=== PATIENT | female | born 1990 | race Caucasian/White ===

== ENCOUNTER 2020-07-20 09:18 | Emergency (ER) | payer OTHER, SELFPAY ==
[2020-07-20 09:34] VITALS: BP 119/62; PULSE 81; RESP 16; TEMP 36.6; O2SAT 100; BMI 35.5
--- NOTE | 2020-07-20 09:39 | ED_ITS ---
HPI - Headache General Chief Complaint: Headache Stated Complaint: headache Time Seen by Provider: 07/20/20 09:21 Source: patient Mode of arrival: ambulatory Limitations: no limitations History of Present Illness HPI Narrative: has a lot of stress at work but also notes her neck muscles are tight as well MD elicited complaint: headache Onset (ago): week(s) (1) Onset description: gradually Location: right, left, occipital and generalized Severity: moderate Quality & Timing: aching and throbbing Exacerbating factors: none Relieving factors: nothing Context: occurred at rest Associated symptoms: none Treatments prior to arrival: none Related Data Previous Rx's Medication Instructions Recorded [id number]-dhhtejzfnyryp-lzga 1 tab PO Q6H PRN #20 tab 07/20/20 cyclobenzaprine 10 mg PO TID PRN #14 tab 07/20/20 ibuprofen 600 mg PO Q6H PRN #30 tab 07/20/20 ondansetron 4 mg PO Q8H PRN #20 tab 07/20/20 Allergies Allergy/AdvReac Type Severity Reaction Status Date / Time No Known Allergies Allergy Verified 07/20/20 09:34 Review of Systems Review of Systems: Constitutional : No Fever, No Chills, No Fatigue ENT/Mouth : No sore throat, No Rhinorrhea, noted scant blood in nose this week while blowing Eyes: No Eye Pain, No Swelling, No Redness Cardiovascular : No Chest Pain, No SOB, No Dyspnea on Exertion Respiratory : No Cough, No Sputum Gastrointestinal : No Nausea, No Vomiting, No Diarrhea, No abdominal Pain Genitourinary : No Dysuria, No Urinary Frequency, No Hematuria, Musculoskeletal : No joint pain, No Myalgias, No Joint Swelling Skin : No Skin Lesions, No rash Neuro : No Weakness, No Numbness, No Dizziness, positive Headache Psych : No Anxiety/Panic, No Depression Heme/Lymph: No Bruising, No Bleeding,No Lymphadenopathy Endocrine : No Polyuria, No Polydipsia All other systems reviewed and are negative [facility] Past Medical History Attestation statement: The following information was validated with the patient. Medical History No active medical problems Social History Social History (Updated 07/20/20 @ 09:56 by Lara Crain DO) Alcohol intake: never Smoking Status: Never smoker Use of substances other than those prescribed or required for medical reasons: No Advance Directives: No Advance Directives Information Provided: No Physical Exam Vital Signs: Vital Signs: Last Vital Signs Temp 98 F 07/20/20 09:34 Pulse 68 07/20/20 11:21 Resp 16 07/20/20 11:21 BP 92/41 L 07/20/20 11:21 Pulse Ox 98 07/20/20 11:21 Body Mass Index 35.5 Appearance: Alert. Oriented X3. No acute distress. Eyes: Pupils equal, round and reactive to light. ENT: Pharynx normal. dried cracked area in nose bilaterally no active bleeding Neck: Normal inspection. bilateral trapezius spasm and ttp CVS: Normal heart rate and rhythm. Pulses normal. Respiratory: No respiratory distress. Breath sounds normal. Abdomen: Soft and non-tender. Skin: Skin warm and dry. Normal skin color. Normal skin turgor. Extremities: No lower extremity edema. No calf ttp Neuro: Oriented X 3. No motor deficit. No sensory deficit. Course Course Course Narrative: negative head CT negative UPT at this time stable for DC MDM - Headache MDM Narrative Medical decision making narrative: 30 yo female no AC therapy here with headaches x 1 week and neck pain from tight muscles at this time will obtain UPT, CT head for mass, treat headache - 1 week waxing and waning neuro intact gradual onset doubt SAH, no fevers or meningeal signs to suggest CLINICAL STAFF RN infection Lab Data Labs: Lab Results 07/20/20 Range/Units 10:08 Urine Test NEGATIVE (NEGATIVE) Discharge Plan Discharge Clinical Impression: Tension headache Patient Disposition: Home, Self-Care Instructions: Tension Headache (ED) Additional Instructions: return to ED for any worsening symptoms or concerns Prescriptions: New cyclobenzaprine 10 mg tablet 10 mg PO TID PRN (Reason: muscle spasm) Qty: 14 RF: 0 qwphipjzjd-jaexyoeyazvkl-bivq 50-325-40 mg tablet 1 tab PO Q6H PRN (Reason: pain) Qty: 20 RF: 0 ibuprofen 600 mg tablet 600 mg PO Q6H PRN (Reason: pain) Qty: 30 RF: 0 ondansetron 4 mg tablet,disintegrating 4 mg PO Q8H PRN (Reason: nausea and vomiting) Qty: 20 RF: 0 Referrals: Physician,None [Primary Care Provider] - 2 days (if not better) Stand Alone Forms: Work/School Release
--- NOTE | 2020-07-20 09:45 | CT_ITS ---
EXAMINATION: CT HEAD WITHOUT CONTRAST CLINICAL INFORMATION: Headache. COMPARISON: None TECHNIQUE: Contiguous axial imaging was performed from the skull base to vertex without intravenous administration of contrast. This CT examination was performed using dose optimization techniques as appropriate, variously including the following: *Automated exposure control *Adjustment of mA and/or kV according to patient size (this includes techniques or standardized protocols for targeted exams where dose is matched to indication/reason for exam; i.e. extremities or head) *Use of iterative reconstruction technique DLP: 575 mGy-cm FINDINGS: There is no evidence of acute intracranial hemorrhage or territorial infarction. No abnormal mass effect or midline shift is seen. Trejo to white matter differentiation is well preserved. No extra-axial fluid collections are identified. The ventricles are normal in size. There is no abnormal attenuation within the brain parenchyma. The osseous structures and soft tissues are normal. The mastoid air cells and visualized portions of the paranasal sinuses are well aerated. CT/CT head/brain wo con IMPRESSION: No acute intracranial process seen.
[2020-07-20] MEDS: Cyclobenzaprine HCl 10 MG TABLET PO (10:04)
[2020-07-20] MEDS: Ibuprofen 600 MG TABLET PO (10:05)
[2020-07-20 10:17] LABS: UPreg QC Valid YES; Urine Pregnancy NEGATIVE (NEGATIVE)
[2020-07-20 11:21] VITALS: BP 92/41; PULSE 68; RESP 16; O2SAT 98
--- NOTE | 2020-07-20 11:30 | PC.NURSE ---
1130 - Provider aware of BP trends
[2020-07-20] MEDS: Butalb/Acetamin/Caff 50/325/40 TABLET 1 TAB PO (12:12)
[2020-07-20 12:22] VITALS: BP 103/60; PULSE 69; RESP 16
== END 2020-07-20 12:23 | disposition home or self-care (01) ==
PROVIDERS: Emergency Provider Emergency Medicine
DX: G44.209 Tension-type headache, unspecified, not intractable (principal)
CPT/HCPCS: 70450; 81025; 99284

== ENCOUNTER 2022-05-24 11:52 | Emergency (ER) | payer MEDICAID, SELFPAY ==
--- NOTE | ~2022-05-24 | XR_ITS ---
EXAMINATION: XR CHEST CLINICAL INFORMATION: Cough, fever. COMPARISON: None TECHNIQUE: 2 views of the chest were obtained. FINDINGS: No significant abnormality is noted involving the heart, lungs, mediastinum, bony thorax or soft tissues. XR/XR chest 2V IMPRESSION: No acute cardiopulmonary process.
[2022-05-24 12:16] VITALS: BP 104/56; PULSE 99; RESP 18; TEMP 36.7; O2SAT 98; BMI 39.6
[2022-05-24 13:20] LABS: Influenza A PCR NEGATIVE (Negative); Influenza B PCR NEGATIVE (Negative); Resp Syncy Virus RNA Qual PCR NEGATIVE (Negative); SARS COV2 PCR INHOUSE NEGATIVE (Negative)
--- NOTE | 2022-05-24 16:14 | ED_ITS ---
HPI - URI/Sore Throat General Chief Complaint: Upper Respiratory Symptoms Stated Complaint: Cough Fever Time Seen by Provider: 05/24/22 16:06 Source: patient Mode of arrival: ambulatory Limitations: no limitations History of Present Illness HPI Narrative: Patient is a 32-year-old female who presents to the emergency department for evaluation of cough and fever. She reports onset to be 2 weeks ago she was taking DayQuil and NyQuil her symptoms are significantly improving, and then 4 days ago her cough worsened again and she developed fevers again. She states that the DayQuil and NyQuil is not helping with her symptoms this time. Denies body aches, fatigue, recent unintentional weight loss, night sweats, nasal congestion, sore throat, neck pain, neck stiffness, chest pain, palpitations, shortness of breath, difficulty breathing, nausea vomiting, abdominal pain, dysuria, urinary frequency/urgency/hesitancy. Related Data Previous Rx's Medication Instructions Recorded ntcxkewoha-rlzjsnpspugqt-fqhcmzvz 1 tab PO Q6H PRN pain #20 tabs 07/20/20 50 mg-325 mg-40 mg tablet cyclobenzaprine 10 mg tablet 10 mg PO TID PRN muscle spasm #14 07/20/20 tabs ibuprofen 600 mg tablet 600 mg PO Q6H PRN pain #30 tabs 07/20/20 ondansetron 4 mg disintegrating 4 mg PO Q8H PRN nausea and 07/20/20 tablet vomiting #20 tabs albuterol sulfate 90 mcg/actuation 2 puff inhalation Q4-6H PRN 05/24/22 aerosol inhaler shortness of breath or wheezing #6.7 grams azithromycin 250 mg tablet See Rx Instructions PO .COMPLEX #6 05/24/22 tabs codeine 10 mg-guaifenesin 100 mg/5 10 ml PO Q4-6H PRN cough #118 mL 05/24/22 mL oral liquid Allergies Allergy/AdvReac Type Severity Reaction Status Date / Time No Known Allergies Allergy Verified 07/20/20 09:34 Review of Systems Review of Systems: Constitutional: Positive fever. No chills. No weakness. Positive fatigue. ENT/ Mouth: No Ear Pain, no Nasal Congestion, no sore throat, No Rhinorrhea, No Swallowing Difficulty Skin: No rash or itching. Cardiovascular: No chest pain. No palpitations. Respiratory: No shortness of breath. Positive cough. No sputum production. Gastrointestinal: No nausea. No vomiting. No diarrhea. No abdominal pain. Genitourinary: No burning micturition. No urinary frequency. Neurologic: No headache. No dizziness. No syncope. No numbness or tingling in the extremities. Musculoskeletal: No muscle pain. No back pain. No joint pain or stiffness. Yes all other systems are reviewed and are negative PMFSH Past Medical History Attestation statement: The following information was validated with the patient. Source: old records reviewed Medical History No active medical problems Social History Social History Alcohol intake: never Advance Directives: No Advance Directives Information Provided: No Physical Exam Vital Signs: Vital Signs: Last Vital Signs Temp 98.0 F 05/24/22 12:16 Pulse 99 05/24/22 12:16 Resp 18 05/24/22 12:16 BP 104/56 L 05/24/22 12:16 Pulse Ox 98 05/24/22 12:16 O2 Del Method 05/24/22 12:16 BMI result Body Mass Index 39.6 Vital signs have been reviewed as normal and appeared to be correct. Blood pressure normal.? Heart rate normal.? Respiration rate normal. Temperature normal.? Oxygen saturation normal. Appearance: Alert.?Oriented to person, place and time. No acute distress.?Normal affect. Eyes: Pupils equal, round and reactive to light.? ENT: TM normal bilaterally. Pharynx normal.?? Neck: Normal inspection.? Neck supple.??No cervical adenopathy CVS: Heart sounds normal. Normal heart rate and rhythm.? Pulses normal.?? Respiratory: No respiratory distress.? Lung sounds clear to auscultation bilaterally?? Abdomen: Soft and non-tender. Normoactive bowel sounds. Skin: Skin warm and dry.? Normal skin color.? ? Extremities: No lower extremity edema.? Neuro: Moves all extremities spontaneously. Sensation intact bilaterally. No motor deficits. Ambulates with normal steady gait. Course Course Course Narrative: Patient is a 32-year-old female with no significant past medical history, presenting for evaluation of upper respiratory symptoms. COVID-19 testing negative. Influenza testing negative. Chest x-ray reveals no acute cardiopulmonary findings. PERC negative. At this time history and physical exam not consistent with ACS/PE/pneumonia. Well-appearing, nontoxic, afebrile, no tachycardia or tachypnea/hypoxia. Speaking clear full sentences, ambulatory with steady gait. Symptoms most consistent with bronchitis verses community- acquired pneumonia not noted on chest x-ray. Discussed plan of care for discharge home, new prescription for albuterol inhaler to use as needed for cough/shortness of breath, as well as new prescription for azithromycin, and guaifenesin with codeine as needed for cough. Discussed conservative treatment including rest, hydration, Tylenol/ibuprofen as needed for fever and body aches, saline nasal spray, humidifier, pusx-sbz-vmcpuan cold medication. Advised to follow-up with primary care provider as needed, discussed reasons to return back to the emergency department. All questions were answered. Patient discharged home in stable condition. MDM - URI/Sore Throat Medical Records Attestation: I reviewed the patient's medical records. Lab Data Attestation: I reviewed the patient's lab results. Labs: Lab Results 05/24/22 Range/Units 12:19 Influenza Type A (PCR) NEGATIVE (Negative) Influenza Type B (PCR) NEGATIVE (Negative) RSV RNA Qual (PCR) NEGATIVE (Negative) SARS-CoV-2 RNA (RT-PCR) NEGATIVE (Negative) Imaging Data Chest x-ray: Radiologist's impression: XR/XR chest 2V IMPRESSION: No acute cardiopulmonary process. Discharge Plan Discharge Clinical Impression: Bronchitis Patient Disposition: Home, Self-Care Instructions: Acute Bronchitis (ED) Additional Instructions: New prescriptions were sent to your pharmacy for an albuterol inhaler to use every 4-6 hours as needed for shortness of breath cough. Additionally sent prescription for azithromycin, please complete this entire course of antibiotic. Cough syrup with codeine to be used as needed every 4-6 hours for cough. Be sure to rest, stay well hydrated drinking plenty of fluids, eat small frequent meals. Tylenol/ibuprofen can be used as needed for fever/pain. Innk-cir-yxoxkxq cold medications may be helpful as well for symptoms. You may return to the emergency department with any new or worsening symptoms or concerns. Follow-up with your primary care provider as needed. Prescriptions: New azithromycin 250 mg tablet See Rx Instructions .ROUTE .COMPLEX Qty: 6 0RF Rx Instructions: For 250 mg dose pack: take 500 mg today (day 1), then 250 mg for 4 days (days 2-5) albuterol sulfate 90 mcg/actuation HFA aerosol inhaler 2 puff inhalation Q4-6H PRN (Reason: shortness of breath or wheezing) Qty: 6.7 0RF codeine-guaifenesin 10-100 mg/5 mL liquid 10 ml PO Q4-6H PRN (Reason: cough) Qty: 118 0RF No Action cyclobenzaprine 10 mg tablet 10 mg PO TID PRN (Reason: muscle spasm) Qty: 14 0RF ijsmbzzsgc-rfjumfgbyarmx-allr 50-325-40 mg tablet 1 tab PO Q6H PRN (Reason: pain) Qty: 20 0RF ibuprofen 600 mg tablet 600 mg PO Q6H PRN (Reason: pain) Qty: 30 0RF ondansetron 4 mg tablet,disintegrating 4 mg PO Q8H PRN (Reason: nausea and vomiting) Qty: 20 0RF Referrals: Physician,None [Primary Care Provider] - Interventions: ED Discharge Assessment Last Done: 05/24/22 18:00 Discharge Date/Time: 05/24/22 18:00
== END 2022-05-24 18:00 | disposition home or self-care (01) ==
PROVIDERS: Emergency Provider Emergency Medicine
DX: J40 Bronchitis, not specified as acute or chronic (principal); R05.9 Cough, unspecified; R50.9 Fever, unspecified; Z20.822 Contact with and (suspected) exposure to COVID-19; Z79.899 Other long term (current) drug therapy
CPT/HCPCS: 0241U; 71046; 99282; 99283

== ENCOUNTER 2022-11-20 13:07 | Emergency (ER) | payer MEDICAID, SELFPAY ==
--- NOTE | 2022-11-20 13:34 | ED.GENADULT ---
HPI - General Adult General Chief complaint: Allergic Reaction <Ralph Yates - Last Filed: 11/20/22 13:35> Stated complaint: Allergic reaction-rash across body <Ralph Yates - Last Filed: 11/20/22 13:35> Time Seen by Provider: 11/20/22 14:15 <Ralph Yates - Last Filed: 11/20/22 13:35> History of Present Illness HPI narrative: Patient complains of hives all over her body for the past 2 days without a known cause, she has no swelling in her throat no difficulty breathing or swallowing no wheezing no shortness of breath no fainting no feeling faint, she is not sure what caused the high, no vomiting no nausea She has been taking Benadryl every 50 mg every 6 hours without relief <ILIA Jarrell - Last Filed: 11/20/22 19:30> Related Data Home medications: Previous Rx's Medication Instructions Recorded lhuxluepft-zpkkmrzlaxlek-bohuhyou 1 tab PO Q6H PRN pain #20 tabs 07/20/20 50 mg-325 mg-40 mg tablet cyclobenzaprine 10 mg tablet 10 mg PO TID PRN muscle spasm #14 07/20/20 tabs ibuprofen 600 mg tablet 600 mg PO Q6H PRN pain #30 tabs 07/20/20 ondansetron 4 mg disintegrating 4 mg PO Q8H PRN nausea and 07/20/20 tablet vomiting #20 tabs albuterol sulfate 90 mcg/actuation 2 puff inhalation Q4-6H PRN 05/24/22 aerosol inhaler shortness of breath or wheezing #6.7 grams azithromycin 250 mg tablet See Rx Instructions PO .COMPLEX #6 05/24/22 tabs codeine 10 mg-guaifenesin 100 mg/5 10 ml PO Q4-6H PRN cough #118 mL 05/24/22 mL oral liquid cetirizine 10 mg tablet 10 mg PO DAILY PRN allergy 11/20/22 symptoms #30 tabs famotidine 20 mg tablet (Pepcid) 20 mg PO DAILY #7 tabs 11/20/22 prednisone 20 mg tablet 60 mg PO DAILY 3 days #9 tabs 11/20/22 <Ralph Yates - Last Filed: 11/20/22 13:35> Allergies/adverse reactions: Allergies Allergy/AdvReac Type Severity Reaction Status Date / Time No Known Allergies Allergy Verified 07/20/20 09:34 <Ralph Yates - Last Filed: 11/20/22 13:35> FOR[facility]LY [facility], [facility] Past Medical History Source: nursing notes reviewed <ILIA Jarrell - Last Filed: 11/20/22 19:30> Medical History: Medical History No active medical problems <Ralph Yates - Last Filed: 11/20/22 13:35> Social History Social History: Social History Alcohol intake: never Advance Directives: No Advance Directives Information Provided: No <Ralph Yates - Last Filed: 11/20/22 13:35> Physical Exam ED Vital Signs: Vital Signs - 24 hr 11/20/22 13:37 11/20/22 14:47 11/20/22 15:41 Temperature 98 F 98.3 F Pulse Rate 97 88 83 Respiratory Rate 19 15 Blood Pressure 105/65 106/63 92/62 Pulse Oximetry 100 100 Oxygen Delivery Method Room Air Room Air BMI result Body Mass Index 38.6 <Ralph Yates - Last Filed: 11/20/22 13:35> Vital Signs - 24 hr 11/20/22 13:37 11/20/22 14:47 11/20/22 15:41 Temperature 98 F 98.3 F Pulse Rate 97 88 83 Respiratory Rate 19 15 Blood Pressure 105/65 106/63 92/62 Pulse Oximetry 100 100 Oxygen Delivery Method Room Air Room Air BMI result Body Mass Index 38.6 <ILIA Jarrell - Last Filed: 11/20/22 19:30> General appearance no distress speaking full sentences no respiratory distress Eyes no redness no discharge The sinuses nontender The pharynx is clear without swelling of lips tongue uvula or pharynx, voice is normal, no impairment of breathing or swallowing Neck is supple No stridor The chest is clear to auscultation with full symmetric equal breath sounds Heart no murmur Abdomen soft nontender Extremities full range of motion x4 Skin there is diffuse urticaria over face scalp neck chest and all extremities <ILIA Jarrell - Last Filed: 11/20/22 19:30> Course Course Course Narrative: 32 year old female presents for an allergic reaction that started 2 days ago. Known allergy to seafood, but she did not knowingly eat any seafood. Has been using Benadryl every 4 hours with minimal improvement. <Ralph Yates - Last Filed: 11/20/22 13:35> 32 year old female presents for an allergic reaction that started 2 days ago. Known allergy to seafood, but she did not knowingly eat any seafood. Has been using Benadryl every 4 hours with minimal improvement. Patient with itchy hives all over her body for past 2 days was been taking Benadryl multiple times a day for the last 48 hours without improvement As it is all over her body and very itchy we tried IM epi 3 mg which did help quite a bit with the rash but she still feels very itchy, the rash has visibly decreased Repeat exam there is a clear chest no respiratory distress no wheezing, repeat exam of the pharynx was normal Well-appearing patient with hives without any other dangerous allergic reaction is discharged <ILIA Jarrell - Last Filed: 11/20/22 19:30> Medications Administered Discontinued Medications Generic Name Dose Route Start Last Admin Trade Name Freq PRN Reason Stop Dose Admin Epinephrine 0.3 mg 11/20/22 14:32 11/20/22 14:47 Epinephrine 1 Mg/Ml Vial IM 11/20/22 14:33 0.3 mg STAT STA Administration Loratadine 10 mg 11/20/22 14:32 11/20/22 14:46 Loratadine 10 Mg Tablet PO 11/20/22 14:33 10 mg ONCE ONE Administration Prednisone 60 mg 11/20/22 14:32 11/20/22 14:46 Prednisone 20 Mg Tablet PO 11/20/22 14:33 60 mg ONCE ONE Administration <Ralph Yates - Last Filed: 11/20/22 13:35> Medications Administered Discontinued Medications Generic Name Dose Route Start Last Admin Trade Name Freq PRN Reason Stop Dose Admin Epinephrine 0.3 mg 11/20/22 14:32 11/20/22 14:47 Epinephrine 1 Mg/Ml Vial IM 11/20/22 14:33 0.3 mg STAT STA Administration Loratadine 10 mg 11/20/22 14:32 11/20/22 14:46 Loratadine 10 Mg Tablet PO 11/20/22 14:33 10 mg ONCE ONE Administration Prednisone 60 mg 11/20/22 14:32 11/20/22 14:46 Prednisone 20 Mg Tablet PO 11/20/22 14:33 60 mg ONCE ONE Administration <ILIA Jarrell - Last Filed: 11/20/22 19:30> Discharge Plan Discharge Clinical Impression: Hives <Ralph Yates - Last Filed: 11/20/22 13:35> Patient Disposition: Home, Self-Care <Ralph Yates - Last Filed: 11/20/22 13:35> Additional Instructions: For hives all over her body we gave 1 dose of epinephrine which did reduce the visible rash but so far has not help much with itching We will increase the dose of antihistamine we gave a dose of Claritin here which lasts for 24 hours if you are still itching with rash tonight it is very safe to take another dose of cetirizine antihistamine 10 mg If needed you can use 10 mg of cetirizine twice a day for the next few days I wrote for 3 more days of prednisone If not better in 1-2 days follow with primary doctor Return any time for difficulty breathing, throat swelling any worse condition or any concerns <Ralph Yates - Last Filed: 11/20/22 13:35> Prescriptions: New cetirizine 10 mg tablet 10 mg PO DAILY PRN (Reason: allergy symptoms) Qty: 30 0RF famotidine [Pepcid] 20 mg tablet 20 mg PO DAILY Qty: 7 0RF prednisone 20 mg tablet 60 mg PO DAILY 3 Days Qty: 9 0RF No Action cyclobenzaprine 10 mg tablet 10 mg PO TID PRN (Reason: muscle spasm) Qty: 14 0RF dxtlpihxeu-ubfxcsgauvfvj-jlli 50-325-40 mg tablet 1 tab PO Q6H PRN (Reason: pain) Qty: 20 0RF ibuprofen 600 mg tablet 600 mg PO Q6H PRN (Reason: pain) Qty: 30 0RF ondansetron 4 mg tablet,disintegrating 4 mg PO Q8H PRN (Reason: nausea and vomiting) Qty: 20 0RF azithromycin 250 mg tablet See Rx Instructions .ROUTE .COMPLEX Qty: 6 0RF Rx Instructions: For 250 mg dose pack: take 500 mg today (day 1), then 250 mg for 4 days (days 2-5) albuterol sulfate 90 mcg/actuation HFA aerosol inhaler 2 puff inhalation Q4-6H PRN (Reason: shortness of breath or wheezing) Qty: 6.7 0RF codeine-guaifenesin 10-100 mg/5 mL liquid 10 ml PO Q4-6H PRN (Reason: cough) Qty: 118 0RF <Ralph Yates - Last Filed: 11/20/22 13:35> Interventions: ED Discharge Assessment Last Done: 11/20/22 15:42 <Ralph Yates - Last Filed: 11/20/22 13:35> Discharge Date/Time: 11/20/22 15:44 <Ralph Yates - Last Filed: 11/20/22 13:35>
[2022-11-20 13:37] VITALS: BP 105/65; PULSE 97; RESP 19; TEMP 36.6; O2SAT 100; BMI 38.6
[2022-11-20] MEDS: predniSONE 20 MG TABLET 60 MG PO (14:46)
[2022-11-20] MEDS: Loratadine 10 MG TABLET PO (14:46)
[2022-11-20 14:47] VITALS: BP 106/63; PULSE 88
[2022-11-20] MEDS: EPINEPHrine 1 MG/ML VIAL 0.3 MG IM (14:47)
--- NOTE | 2022-11-20 14:54 | PC.NURSE ---
pt medicated per SEP, pt given 0.3mg epi IM for full body hives, pt changed into hospital attire, pt placed on equipment monitor phototypesetting. pt speaking in full sentances no increased work of breathing. call tyson within reach [facility]
[2022-11-20 15:41] VITALS: BP 92/62; PULSE 83; RESP 15; TEMP 36.8; O2SAT 100
== END 2022-11-20 15:44 | disposition home or self-care (01) ==
PROVIDERS: Emergency Provider Emergency Medicine Emergency Medical Services
DX: L50.0 Allergic urticaria (principal); Z79.899 Other long term (current) drug therapy
CPT/HCPCS: 96372; 99283; 99284; J0171

== ENCOUNTER 2023-06-26 22:51 | Emergency (ER) | payer OTHER, SELFPAY ==
[2023-06-26 22:58] VITALS: BP 100/51; PULSE 81; RESP 16; TEMP 36.2; O2SAT 99; BMI 37.6
--- NOTE | 2023-06-27 00:38 | ED_ITS ---
HPI - Skin/Abscess/Foreign Bdy General Chief complaint: Skin/Abscess/Foreign Body Stated complaint: body rash Time Seen by Provider: 06/27/23 00:23 Source: patient Mode of arrival: ambulatory Limitations: no limitations History of Present Illness HPI narrative: 33-year-old female otherwise healthy came in for evaluation of diffuse hives started 2 weeks ago. Start as small dot on the skin then turn into hive that is itchy mostly on bilateral extremities and lower back and abdominal area and bilateral thighs. Patient declined any change in the daily routine no new medication or new drugs, no new detergent, no new food. Related Data Previous Rx's Medication Instructions Recorded malzebyvhd-ytsplycopvbyl-ehtrjhoq 1 tab PO Q6H PRN pain #20 tabs 07/20/20 50 mg-325 mg-40 mg tablet cyclobenzaprine 10 mg tablet 10 mg PO TID PRN muscle spasm #14 07/20/20 tabs ibuprofen 600 mg tablet 600 mg PO Q6H PRN pain #30 tabs 07/20/20 ondansetron 4 mg disintegrating 4 mg PO Q8H PRN nausea and 07/20/20 tablet vomiting #20 tabs albuterol sulfate 90 mcg/actuation 2 puff inhalation Q4-6H PRN 05/24/22 aerosol inhaler shortness of breath or wheezing #6.7 grams azithromycin 250 mg tablet See Rx Instructions PO .COMPLEX #6 05/24/22 tabs codeine 10 mg-guaifenesin 100 mg/5 10 ml PO Q4-6H PRN cough #118 mL 05/24/22 mL oral liquid cetirizine 10 mg tablet 10 mg PO DAILY PRN allergy 11/20/22 symptoms #30 tabs famotidine 20 mg tablet (Pepcid) 20 mg PO DAILY #7 tabs 11/20/22 prednisone 20 mg tablet 60 mg (3 x 20 mg) PO DAILY 3 days 11/20/22 #9 tabs prednisone 20 mg tablet 20 mg PO BID #8 tabs 06/27/23 Allergies Allergy/AdvReac Type Severity Reaction Status Date / Time No Known Allergies Allergy Verified 07/20/20 09:34 Review of Systems Review of Systems: All other systems are reviewed and are negative Constitutional: Reports as per HPI and Reports no additional constitutional complaints Eyes: Reports as per HPI and Reports no additional eye complaints Reports system reviewed and no additional complaints, except as documented Cardiovascular: Reports as per HPI and Reports no additional cardiovascular complaints Respiratory: Reports as per HPI and Reports no additional respiratory complaints Gastrointestinal: Reports as per HPI and Reports no additional gastrointestinal complaints Genitourinary: Reports no additional female genitourinary complaints Musculoskeletal: Reports no additional musculoskeletal complaints Skin/Breast: Reports system reviewed and no additional complaints, except as docu Psychiatric: Reports no additional psychiatric complaints Endocrine: Reports no additional endocrine complaints Hematologic/Lymphatic: Reports no additional hematologic/lymphatic complaints Allergic/Immunologic: Reports no additional allergic/immunologic complaints Reports system reviewed and no additional complaints, except as documented and Reports Abnormal speech present [facility] Past Medical History Medical History No active medical problems Social History Alcohol intake: never Physical Exam Vital Signs: Vital Signs: Last Vital Signs Temp 97.2 F 06/26/23 22:58 Pulse 81 06/26/23 22:58 Resp 16 06/26/23 22:58 BP 100/51 L 06/26/23 22:58 Pulse Ox 99 06/26/23 22:58 O2 Del Method Room Air 06/26/23 22:58 BMI result Body Mass Index 37.6 Vital signs have been reviewed and appear to be correct. Blood pressure elevated. Heart rate normal. Respiratory rate normal. Temperature normal. Oxygen saturation normal. Appearance: Alert. Oriented X3. No acute distress. Head: Normal external exam. Normocephalic. Atraumatic. No Sales signs noted. No raccoon eyes noted Eyes: PERRLA. EOMI. Conjunctiva and sclera normal. Eyelids normal. ENT: TM's Normal. Pharynx normal. Uvula midline. Moist mucous membranes. No trismus noted. No drooling noted. No muffled voice noted. Neck: Normal inspection. Neck supple. FROM. No adenopathy. Thyroid Normal. No meningeal signs. No neck mass noted. CVS: Normal heart rate and rhythm. Heart sound normal. No murmurs noted. Pulses normal throughout. Respiratory: No respiratory distress. Painless inspiration. Breath sounds normal. No wheezes/rales/rhonchi noted. Chest nontender. No accessory muscle usage noted or decreased air movement noted. Abdomen: Soft and nontender. Bowel sounds normal in all 4 quadrants. No distention noted. No organomegaly noted. No visible injury noted. Back: No CVA tenderness. Full range of motion noted. Skin: Diffuse hives on 4 extremities lower abdomen lower back area. Extremities: No lower extremity edema. Extremities exhibit normal range of motion. Extremities nontender. Neuro: Oriented X 3. Cranial nerve exam: II-XII are grossly intact No motor deficit. No sensory deficit. Reflexes normal. Course Reevaluation(s) Reevaluation #1: Hives of unclear etiology patient declined any change in her daily routine, will start on short course of prednisone. Time: 00:41 Medical Decision Making Differential Diagnosis Differential Diagnoses: The differential diagnosis associated with the presentation includes (Hives, allergic reaction.) Discharge Plan Discharge Clinical Impression: Hives Patient Disposition: Home, Self-Care Instructions: Acute Rash (ED) Additional Instructions: Follow-up with [facility] and ask for referral to a dermatology Prescriptions: New prednisone 20 mg tablet 20 mg PO BID Qty: 8 0RF No Action cyclobenzaprine 10 mg tablet 10 mg PO TID PRN (Reason: muscle spasm) Qty: 14 0RF wymfspcdsc-ddnxbaofjrzca-bqey 50-325-40 mg tablet 1 tab PO Q6H PRN (Reason: pain) Qty: 20 0RF ibuprofen 600 mg tablet 600 mg PO Q6H PRN (Reason: pain) Qty: 30 0RF ondansetron 4 mg tablet,disintegrating 4 mg PO Q8H PRN (Reason: nausea and vomiting) Qty: 20 0RF azithromycin 250 mg tablet See Rx Instructions .ROUTE .COMPLEX Qty: 6 0RF Rx Instructions: For 250 mg dose pack: take 500 mg today (day 1), then 250 mg for 4 days (days 2-5) albuterol sulfate 90 mcg/actuation HFA aerosol inhaler 2 puff inhalation Q4-6H PRN (Reason: shortness of breath or wheezing) Qty: 6.7 0RF codeine-guaifenesin 10-100 mg/5 mL liquid 10 ml PO Q4-6H PRN (Reason: cough) Qty: 118 0RF cetirizine 10 mg tablet 10 mg PO DAILY PRN (Reason: allergy symptoms) Qty: 30 0RF famotidine [Pepcid] 20 mg tablet 20 mg PO DAILY Qty: 7 0RF prednisone 20 mg tablet 60 mg PO DAILY 3 Days Qty: 9 0RF
[2023-06-27] MEDS: predniSONE 20 MG TABLET 40 MG PO (00:54)
== END 2023-06-27 00:57 | disposition home or self-care (01) ==
PROVIDERS: Emergency Provider Emergency Medicine
DX: L50.9 Urticaria, unspecified (principal)
CPT/HCPCS: 99282; 99283

== ENCOUNTER 2024-04-09 14:46 | Outpatient (REF) | payer OTHER, SELFPAY ==
[2024-04-09 17:30] LABS: MANUAL DIFF FLAG NO
[2024-04-09 18:02] LABS: Basophils Percent Auto 0.6 % (0-2); Eosinophils Percent Auto 0.4 % (0-4); Hematocrit 39.6 % (37.0-47.0); Hemoglobin 12.9 g/dl (12.0-16.0); Imm Gran Abs Auto 0.03 X10*3/uL (0.00-0.03); Imm Gran Pct Auto 0.4 % (0.0-0.4); Lymphocytes Absolute Auto 2.6 X10*3/uL (1.2-4.9); Lymphocytes Percent Auto 35.3 % (20-40); Mean Corpuscular HGB Conc 32.6 g/dl (31.0-35.0); Mean Platelet Volume 10.3 fL (9.4-12.3); Monocytes Absolute Auto 0.8 X10*3/uL (0.1-1.2); Monocytes Percent Auto 10.7 % (2-11); Neutrophils Absolute Auto 3.8 x10*3/uL (2.0-8.3); Neutrophils Percent Auto 52.6 % (45-73); Platelet Count 372 X10*3/uL (160-400); Red Blood Count 4.45 X10*6/uL (4.20-5.50); Red Cell Distribution Width 13.2 % (11.0-16.0); White Blood Count 7.3 X10*3/uL (4.8-10.8)
[2024-04-09 18:46] LABS: Alanine Aminotransferase 21 U/L (0-31); Albumin Level 4.2 g/dL (3.5-5.0); Alkaline Phosphatase 62 U/L (39-117); Anion Gap 9 (12-20); Aspartate Amino Transferase 16 U/L (5-31); Bilirubin Total 0.5 mg/dL (0.0-1.0); Blood Urea Nitrogen 10 mg/dL (9-16); Calcium 9.7 mg/dL (8.4-10.2); Carbon Dioxide 25 mmol/L (22-29); Chloride 106 mmol/L (96-108); Cholesterol 183 mg/dL (<200); Estimated Glomerular Filt Rate > 60; Glucose Random 83 mg/dL (60-115); HDL Cholesterol 44 mg/dL (>40); LDL Cholesterol Calculated 110 mg/dL (<100); Potassium 4.3 mmol/L (3.3-5.1); Sodium 136 mmol/L (135-145); Total Protein 7.2 g/dL (6.5-8.0); Triglycerides 147 mg/dL (<150)
[2024-04-09 20:20] LABS: Folate 6.4 ng/mL (> or = 4.0); Vitamin B12 484 pg/mL (200-900)
[2024-04-10 04:59] LABS: HIV AB/AG Nonreactive (Nonreactive); HIV Num 1 0.05 S/CO (0.00-0.99); ~HepC Num1 0.17 S/CO (0.00-0.79); ~Hepatitis C Antibody Nonreactive (Nonreactive)
== END 2024-04-09 14:47 | disposition home or self-care (01) ==
LOC: HO.CHCLDS 14:46
PROVIDERS: Visit Provider Internal Medicine
DX: E66.9 Obesity, unspecified (principal); Z68.37 Body mass index [BMI] 37.0-37.9, adult
CPT/HCPCS: 36415; 80053; 80061; 82607; 82746; 84443; 85025; 86803; 87389

== ENCOUNTER 2025-02-24 14:10 | Outpatient (AMB) | payer OTHER, SELFPAY ==
--- NOTE | 2025-02-24 14:14 | A.OFFVIS_ITS ---
Vital Signs 02/24/25 14:26 Height 4 ft 10 in Weight 194 lb BMI 40.5 Intake Visit Reasons: [employer] elbow lateral epicondylitis Intake Note: Earline is a 35 year old left hand dominant female who presents today as a new patient for an evaluation of left elbow pain. Patient reports her pain has been present since October, after she was working at [employer] and lifted a heavy box of produce. She was seen by her PCP who prescribed meloxicam, states medication helped temporary. She was also provided with an arm band however this does not help. States she is unable to lift items and it is affecting her work due to the pain. No previous treatment. Allergies No Known Allergies Allergy (Verified 02/24/25 14:19) Medication List - Last Reconciled 02/24/25 by Colette Garza PA-C albuterol sulfate 90 mcg/actuation 2 puffs inhalation Q4-6H PRN fluoxetine 20 mg PO DAILY hydroxyzine pamoate 50 mg PO Q8H PRN trazodone 100 mg PO BEDTIME HPI HPI [employer] elbow lateral epicondylitis: Details: 35 yo female presents to the office today for pain in the left elbow since october. 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 She was seen by her primary care doctor who gave her a prescription for meloxicam which was somewhat helpful however she ran out of this prescription. She denies numbness or tingling. She also experiences discomfort along the triceps tendon in the left elbow region. No other treatment to date. [facility] Medical History No active medical problems Social History Alcohol intake: never Review of Systems Const All systems reviewed & are unremarkable except as noted in HPI and below Physical Exam Vital Signs: BMI result Body Mass Index 40.5 Const General: cooperative and no acute distress Orientation/consciousness: patient oriented x3 Resp Effort & Inspection: normal respiratory effort and able to speak in complete sentences Cardio Peripheral pulses: Peripheral pulses 2+ throughout Neuro General: patient oriented x3 Extrem Other: left Elbow skin intact. No erythema or swelling. ROM full without pain. Tender ness over the lateral epicondyle and pain with resisted wrist extension. NVI. Assessment & Plan Assessment & Plan (1) Lateral epicondylitis, left elbow: Code(s): M77.12 - Lateral epicondylitis, left elbow Category: Medical Plan: We discussed options today which includes occupational therapy to help with the strengthening conditioning exercises. An order was placed for this and she was given their contact information to make an appointment. I did refill her meloxicam to take 7.5 mg b.i.d. for 2 weeks and then she can take it once a day. I stressed the importance of modification of activity as this is often an overuse injury. I stressed the importance of continuing with her exercises at home and with occasional flare-ups she can take the meloxicam. If symptoms persist or worsen over the next 12 weeks she can contact me and we can discuss a steroid injection otherwise she will follow up as needed. Orders: Orders OT Evaluation and Treatment Today M77.12 - Lateral epicondylitis, left elbow Medications: New meloxicam 7.5 mg PO BID 60 tabs 3RF 30 days Discontinued opqvknlytg-yqeammyusmxqb-kiys 50-325-40 mg Discontinued Reason: Patient no longer taking 1 tab PO Q6H PRN 20 tabs 0RF pain cyclobenzaprine Discontinued Reason: Patient no longer taking 10 mg PO TID PRN 14 tabs 0RF muscle spasm ibuprofen Discontinued Reason: Patient no longer taking 600 mg PO Q6H PRN 30 tabs 0RF pain ondansetron Discontinued Reason: Patient no longer taking 4 mg PO Q8H PRN 20 tabs 0RF nausea and vomiting azithromycin Discontinued Reason: Patient no longer taking For 250 mg dose pack: take 500 mg today (day 1), then 250 mg for 4 days (days 2-5) 6 tabs 0RF codeine-guaifenesin 10-100 mg/5 mL Discontinued Reason: Patient no longer taking 10 mL PO Q4-6H PRN 118 mL 0RF cough cetirizine Discontinued Reason: Patient no longer taking 10 mg PO DAILY PRN 30 tabs 0RF allergy symptoms famotidine (Pepcid) Discontinued Reason: Patient no longer taking 20 mg PO DAILY 7 tabs 0RF prednisone Discontinued Reason: Patient no longer taking 60 mg (3 x 20 mg) PO DAILY 3 days 9 tabs 0RF prednisone Discontinued Reason: Patient no longer taking 20 mg PO BID 8 tabs 0RF Coding Level of Care Code New Pt Level 3 (27541) Complex EM visit Add On G2211 Diagnoses Lateral epicondylitis, left elbow M77.12
[2025-02-24 14:26] VITALS: BMI 40.5
--- OUTSIDE RECORDS SUMMARY | 2025-02-24 14:54 | XMS_ITS | Clinical Summary ---
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 hydrOXYzine pamoate (Vistaril) 50 MG capsule Take 1 capsule (50 mg) by mouth every 6 (six) hours if needed for anxiety. 360 capsule 5 Active traZODone (Desyrel) 100 MG tablet TAKE 1 TABLET BY MOUTH AT BEDTIME 90 tablet 1 5 Active meloxicam (Mobic) 15 MG tabletIndications: Lateral epicondylitis of left elbow Take 1 tablet (15 mg) by mouth Once per day. 30 tablet 11 5 11/12/19 26 Active Active Problems Problem Noted Date Diagnosed Date Lateral epicondylitis of left elbow 12/25/2024 Assessment & Plan (12/25/2024 10:17 AM EDT): Patient has followed reccomendations without improvement in symptoms, will refer to ortho for evalaution for cortisone shot Mixed stress and urge urinary incontinence 12/11 Assessment & Plan (12/11/2024 2:26 PM EDT): Recommended kegel exercises, will refer to [facility] for evaluation Dental calculus 08/01/2024 Bleeding gums 08/01/2024 Inflamed gum 08/01/2024 Encounter for physical examination 04/09/2024 Assessment & Plan (04/09/2024 2:27 PM EDT): Unremarkable physical exam She is due for a pap smear, will be scheduled She will get tdap and flu shot today Labs will be ordered to evaluate secondary conditions associated with obesity Severe episode of recurrent major depressive disorder, without psychotic features 03/27/2024 Assessment & Plan (09/13/2024 1:27 PM EST): Symptoms improved with medication adjustment, follow up with therapist, pending psych evaluation, no suicidal/homicidal ideas Assessment & Plan (08/28/2024 2:01 PM EST): Increased anxiety, no suicidal/homicidal ideas, will increase fluoxetine to 40mg, and hydroxyzine up to 4 times a day, will also refer to Assessment & Plan (08/13/2024 12:29 AM EST): Patient followed by , she denied active suicidal/homicidal ideas, she started mental health program, will follow up in 3 months Panic disorder 03/27/2024 Encounter to establish care 12/09/2023 Assessment & Plan (12/09/2023 10:47 AM EDT): Patient last hospitalization over 10 years for delivery. She has visited er on the past year for anxiety and allergies. Not seen a PCP in over 10 years. A0, both vaginal deliveries without complication pre/post . Sexually active with 1 partner, she has hx of tubal ligation. Complaining today of anxiety Anxiety 12/09/2023 Assessment & Plan (12/11/2024 2:25 PM EDT): Symptoms improved, on hydroxyzine, no suicidal/homicidal ideas, no changes will be made Assessment & Plan (03/19/2024 2:08 PM EDT): Mild improvement with hydroxyzine as needed, will start on lexapro to be taken daily, risk vs benefits discussed, told to follow up with therapist, phone number was provided to schedule new visit, will follow up in 1 month Assessment & Plan (12/09/2023 10:48 AM EDT): No suicidal/homicidal ideas, will start on hydroxyzine and will refer to , will follow up in 1 month Mild depression 12/09/2023 Assessment & Plan (04/09/2024 2:25 PM EDT): Symptoms improving with escitalopram, no suicidal/homicidal ideas, followed by , follow up in 3 months Assessment & Plan (12/09/2023 10:49 AM EDT): As above Encounters Date Type Department Care Team Description 12/25/2024 Orders Only [facility] [address] [place] [address] Konstantin Cash MD 12/24/2024 Telephone [facility] [address] [place] [address] Konstantin Cash MD 12/11/2024 2:00 PM EDT Telemedicine [facility] [address] [place] [address] Konstantin Cash MD Anxiety (Primary Dx); Mild depression; Mixed stress and urge urinary incontinence; Lateral epicondylitis of left elbow 12/11/2024 Travel 12/11/2024 Telephone [facility] [address] [place] [address] Konstantin Cash MD appt registration from Last 3 Months Immunizations Immunization Administration Dates Next Due Influenza, seasonal, injectable, preservative fr ee 04/09/2024 Tdap 04/09/2024 Family History Medical History Relation Name Comments Diabetes type II Father Hypertension Father Breast cancer Father's Sister Hypothyroidism Mother Relation Name Status Comments Father Father's Sister Mother Social History Tobacco Use Types Packs/Day Years Used Date Smoking Tobacco: Never Smokeless Tobacco: Never Tobacco Cessation:Counseling Given: Not Answered Alcohol Use Standard Drinks/Week Comments Yes 0 (1 standard drink = 0.6 oz pur e alcohol) social/wine Depression Answer Date Recorded Patient Health Questionnaire-9 Score 0 12/11/2024 Patient Health Questionnaire-9 Score 0 12/11/2024 Last PHQ-9: Questionnaire Data Not on file 0 12/11/2024 Housing Stability Answer Date Recorded What is your housing situation today? I have melany rodrigez 01/30/[address] you li ve. Do you have problems with any of the following? None of the above 01/30/2024 Food Insecurity Answer Date Recorded Within the past 12 months, y ou worried that your food would run out before you got money to buy more: Never True 01/30/2024 Within the past 12 months,th e food you bought just didn't last and you didn't have enough money to get more: Never True 08/2023 Transportation Answer Date Recorded In the past 12 months, has l ack of transportation kept you from medical appts, meetings, work or from getting things needed for daily living? No 01/30/2024 Utilities Answer Date Recorded In the past 12 months, has t he electric, gas, oil or water company threatened to shut off services in your home? No 01/30/2024 Depression Answer Date Recorded Patient Health Questionnaire-2 Score 0 12/11/2024 Internet Access Answer Date Recorded Internet Access Q1 Yes 04/01/2024 Internet Access Q2 Not on file 04/01/2024 Comments No Sex and Gender Information Value Date Recorded Sex Assigned at Female 12/19/2022 10:43 AM EDT Legal Sex Female 10:41 AM EDT Gender Identity Female 12/19/2022 10:43 AM EDT Sexual Orientation Straight 12/19/2022 10 :43 AM EDT Last Filed Vital Signs Vital Sign Reading Time Taken Comments Blood Pressure 107/59 11/11/2024 3:08 PM EDT Pulse 84 11/11/2024 3:08 PM EDT Temperature 36.8 C (98.2 F) 11/11/2024 3:08 PM EDT Respiratory Rate 18 11/11/2024 3:08 PM EDT Oxygen Saturation 99% 11/11/2024 3:08 PM EDT Inhaled Oxygen Concentration - - Weight 86.9 kg (191 lb 9.6 oz) 11/11/2024 3:08 P M EDT Height 147.3 cm (4' 10 ) 11/11/2024 3:08 PM EDT Body Mass Index 40.04 11/11/2024 3:08 PM EDT Plan of Treatment Upcoming Encounters Date Type Department Care Team (Late st Contact Info) Description 03/13/2025 2:15 PM EDT Telemedicine [facility] [address] [place] [address] Konstantin Cash MD [address] [place] [address] Health Maintenance Due Date Last Done Comments Disability Screening 1991 Family Planning (PISQ) 2006 HPV Vaccines (1 - 3-dose series) 2006 Hepatitis B Vaccines (1 of 3 - 19+ 3-dose series) 2010 Pap Smear 02/19/2012 Cervical Cancer Screening 2021 HPV/Cotest 2021 COVID-19 Vaccine (2023-2 5 season) 2024 08/30/2021, 01/06/2021, 12/16/2020 SDOH Screening 01/29/2025 01/30/2024 Dental Prophylaxis 01/30/2025 08/01/2024 Dental Oral Exam 02/19/2025 08/21/2024, 05/05/2023 Influenza Vaccine (#1) 2025 , 04/09/2024 Dental X-Ray: Bitewings 08/02/2025 08/01/19 25, 05/05/2023 Alcohol/Substance Use Screening 09/12/2025 09/12/2024 Tobacco Screening 11/11/2025 11/11/2024 Depression Screening 12/11/2025 12/11/2024, 12/11/2024 Dental X-Ray: Full Mouth 05/06/2026 05/05/2023 Lipid Panel 04/09/2029 04/09/2024 DTaP/Tdap/Td Vaccines (2 - T d or Tdap) 04/09/2034 04/09/2024 Zoster Vaccines (1 of 2) 2041 RSV Patients and Patients Aged 60 years or older (1 - 1-dose 75+ series) 2066 HIV Screening Completed 04/09/2024 Hepatitis C Screening Completed 04/09/2024 HIB Vaccines Aged Out No longer eligi ble based on patient's age to complete this topic Hepatitis A Vaccines Aged Out No long er eligible based on patient's age to complete this topic IPV Vaccines Aged Out No longer eligi ble based on patient's age to complete this topic Meningococcal B Vaccine Aged Out No l onger eligible based on patient's age to complete this topic Meningococcal Vaccine Aged Out No natalia ac eligible based on patient's age to complete this topic Pneumococcal Vaccine: Pediatrics (0 to 5 Years) and At-Risk Patients (6 to 49) Years Aged Out No longer eligible b ased on patient's age to complete this topic RSV under 20 months Aged Out No longe r eligible based on patient's age to complete this topic Rotavirus Vaccines Aged Out No longer eligible based on patient's age to complete this topic Procedures Procedure Name Priority Date/Time Associated Diagnosis Comments PERIODIC ORAL EVALUATION - ESTABLISHED PATIENT Routine 08/21/2024 2:30 PM EST Encounter for dental examination Inflamed gum Dental caries PROPHYLAXIS - ADULT Routine 08/01/2024 1 1:00 AM EST Dental calculus Bleeding gums Inflamed gum BITEWINGS - 4 RADIOGRAPHIC IMAGES Routine 08/01/2024 11:00 AM EST Dental calculus Bleeding gums Inflamed gum LIPID PANEL, STANDARD Routine 04/09/2024 2:49 PM EDT Class 2 obesity without serious comorbidity with body mass index (BMI) of 37.0 to 37.9 in adult, unspecified obesity type HEPATITIS C AB W/REFL TO HCV RNA, QN, PCR Routine 04/09/2024 2:44 PM EDT Class 2 obesity without serious comorbidity with body mass index (BMI) of 37.0 to 37.9 in adult, unspecified obesity type HIV 1/2 ANTIGEN/ANTIBODY, FOURTH GENERATION W/RFL Routine 04/09/2024 2:44 PM EDT Class 2 obesity without serious comorbidity with body mass index (BMI) of 37.0 to 37.9 in adult, unspecified obesity type INTRAORAL - COMPLETE SERIES OF RADIOGRAPHIC IMAGES Routine 05/05/2023 9:00 AM EDT from Last 3 Months or Most Recently Relevant to Health Maintenance Results * (ABNORMAL) Lipid Panel, Standard (04/09/2024 2:49 PM EDT) Triglycerides 147 <150 mg/dL [facility] Comment:Desirable Triglyceri de: less than 150 mg/dLBorderline High Triglyceride 150-199 mg/dLHigh Triglyceride: 200-499 mg/dLVery High Triglyceride: greater than or equal to 5OO mg/dL Cholesterol 183 <200 mg/dL [facility] Comment:Desirable Cholestero l: less than 200 mg/dLBorderline High Cholesterol: 200-239 mg/dLHigh Cholesterol: greater than 239 mg/dL LDL Cholesterol Calculated 110(H) <100 mg/dL [facility] Comment:Desirable LDL: less than 100 mg/dLNear Optimal/Above Optimal LDL: 110- 129 mg/dLBorderline High LDL: 130-159 mg/dLHigh LDL: 160-189 mg/dLVery High LDL: greater than or equal to 190 mg/dL HDL Cholesterol 44 >40 mg/dL [facility] Comment:Desirable HDL: great er than 40 mg/dL Note: This HDL assay may give artificially low results in patients with liver disease. Blood Venous blood specimen / Unknown 04/09/2024 2:49 PM EDT 04/09/2024 5:27 PM EDT us Konstantin Bryant MD LAB BLOOD ORDERABL ES Final Result Performing Organization Address [facility] de Phone Number [facility] [address] [place] [phone] * Hepatitis C Antibody with Reflex to HCV, RNA, Quantitative, Real-Time PCR (04/09/2024 2:44 PM EDT) Hepatitis C Antibody Nonreactive Nonreactive [facility] Comment:Antibodies to HCV no t detected; does not exclude early acuteHCV infection. Blood Venous blood specimen / Unknown 04/09/2024 2:44 PM EDT 04/09/2024 5:27 PM EDT Konstantin Bryant MD LAB BLOOD ORDERABL ES Final Result Performing Organization Address [facility] Co de Phone Number [facility] [address] [place] [address] [place] [phone] * HIV-1/2 Antigen and Antibodies, Fourth Generation, with Reflexes (04/09/2024 2:44 PM EDT) HIV AB/AG Nonreactive Nonreactive [facility] Comment:HIV-1 p24 Ag and/or HIV-1/HIV-2 Ab not detected.A test result that is nonreactive does not exclude thepossibility of exposure to or infection with HIV-1 and/orHIV-2. Nonreactive results in this assay for individualswith prior exposure to HIV-1 and/or HIV-2 may be due toantigen and antibody levels that are below the limit ofdetection of this assay.The [email or web address] HIV Ag/Ab Combo assay result andsupplemental assay results should be interpreted inconjunction with the patient's clinical presentation,history and other laboratory results. If the results areinconsistent with clinical evidence, additional testing issuggested to confirm the result. 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
== END 2025-02-24 14:55 | disposition home or self-care (01) ==
LOC: HO.HOS 14:10
PROVIDERS: PCP Internal Medicine; Visit Provider Physician Assistant
DX: M77.12 Lateral epicondylitis, left elbow (principal)
CPT/HCPCS: 99203; G2211

== ENCOUNTER 2025-05-09 23:04 | Emergency (ER) | payer OTHER, SELFPAY ==
--- NOTE | ~2025-05-09 | CT_ITS ---
CLINICAL HISTORY: central abdo pain and tenderness CT abdomen and pelvis with contrast Comparison: None provided Findings: There is minimal dependent atelectasis. There is motion artifact in the upper abdomen. The patient is status post cholecystectomy. The liver, pancreas, spleen, adrenal glands, and kidneys are unremarkable allowing for mild limitation of motion artifact. The appendix is normal. The remainder of the gastrointestinal tract is unremarkable. The aorta and IVC are normal. There are no enlarged lymph nodes. The uterus and adnexa are unremarkable. The bladder is unremarkable. There is no fracture or suspicious lytic or sclerotic lesion. IMPRESSION: No acute abnormality in the abdomen or pelvis. This document has been electronically signed by: Josafat Dietz MD on 05/10/2025 02:12:15
[2025-05-09 23:09] VITALS: BP 101/50; PULSE 81; RESP 20; TEMP 36.8; O2SAT 100; BMI 39.0
--- NOTE | 2025-05-09 23:17 | ED.GENADULT ---
HPI - General Adult General Chief complaint: Abdominal Pain Stated complaint: abd & back pain Time Seen by Provider: 05/09/25 23:17 History of Present Illness ED Provider: Edgar AGUILA narrative: The patient is a 35-year-old female. She says that 13 years ago she had some kind of laparoscopic surgery for prevention. She suspects this was a tubal ligation procedure but she says that she was never clear about what the exact procedure was. In any event she had surgery to prevent future pregnancies. She already had 2 children at that time. The surgery was in [place]. The patient says that she has had abdominal pain for 2 weeks. Last week it was not that bad. She was seeing her regular doctor at the [facility], Dr. James, to discuss her anxiety medications. She says that she mentioned her symptoms to her doctor at that time and was advised to follow up with him or return to the ER if symptoms worsened. She says that over the last 4 days the pain has gotten worse. She feels the pain is in the region of the umbilicus and she feels that it is pulling into her abdomen and over the last 2 days it seems to be radiating to her back, somewhat more in the left side. Last night she could not sleep because of the pain and therefore she came to the emergency room. She has had no associated fever, sweats or chills. No associated vomiting although she had some nausea today. No diarrhea. No vaginal discharge. No urinary symptoms. Related Data Home Medications ?Medication ?Instructions ?Recorded ?Confirmed fluoxetine 20 mg capsule 20 mg PO DAILY 02/24/25 02/24/25 hydroxyzine pamoate 50 mg capsule 50 mg PO Q8H PRN anxiety 02/24/25 02/24/25 trazodone 100 mg tablet 100 mg PO BEDTIME 02/24/25 02/24/25 Previous Rx's ?Medication ?Instructions ?Recorded albuterol sulfate 90 mcg/actuation 2 puff inhalation Q4-6H PRN 05/24/22 aerosol inhaler shortness of breath or wheezing #6.7 grams meloxicam 7.5 mg tablet 7.5 mg PO BID 30 days #60 tabs 02/24/25 acetaminophen 500 mg capsule 1,000 mg (2 x 500 mg) PO Q8H PRN 10/11/25 fever or pain #14 caps ibuprofen 400 mg tablet 400 mg PO Q6H PRN pain #14 tabs 05/10/25 ondansetron 4 mg disintegrating 4 mg PO Q6H PRN nausea and 05/10/25 tablet vomiting #10 tabs Allergies Allergy/AdvReac Type Severity Reaction Status Date / Time No Known Allergies Allergy Verified 05/09/25 23:12 Review of Systems Review of Systems: Yes all other systems are reviewed and are negative [facility] Past Medical History Medical History No active medical problems Social History Social History Alcohol intake: never Smoked in Last 30 Days: Yes Use of substances other than those prescribed or required for medical reasons: No Advance Directives: No Advance Directives Information Provided: No Patient : No Physical Exam ED Vital Signs: Vital Signs - 24 hr 05/09/25 23:09 Temperature 98.2 F Pulse Rate 81 Respiratory Rate 20 Blood Pressure 101/50 L Pulse Oximetry 100 Oxygen Delivery Method Room Air BMI result Body Mass Index 39.0 Const General: cooperative, healthy appearing, comfortable, no acute distress, well developed, alert and awake Orientation/consciousness: patient oriented x3 HENMT Head: Yes normal to inspection Face and sinus: Yes normal facial exam Mouth: Normal oral and palatal mucosa present Throat: Yes posterior oropharynx normal Eyes General: appearance normal, both eyes and all related structures Neck Neck: Yes normal visual inspection and Yes full ROM Resp Effort & Inspection: normal respiratory effort Auscultation: clear to auscultation bilaterally Cardio Rate: regular rate Rhythm: regular rhythm Heart sounds: S1 normal heart sound present and S2 normal heart sound present GI Other: The patient has a small surgical scar near the umbilicus. Palpation in the periumbilical region does not reveal any suggestion of a hernia in his soft tissues of the umbilicus or the surrounding area. She has a mild tenderness in both lower quadrants. No definite rebound or guarding. Back/Spine/Pelvis Other: Equivocal left-sided CVA percussion tenderness. Skin Other: The skin is dry and unremarkable Neuro General: patient oriented x3, gait normal, tone normal, moves all extremities, no focal motor deficits and CN's II-XI intact bilaterally Extrem Other: There is no calf swelling or tenderness. No asymmetry. No peripheral edema. Medications Administered Discontinued Medications Generic Name Dose Route Start Last Admin Trade Name Dunia PRN Reason Stop Dose Admin Acetaminophen 1,000 mg in 100 mls @ 400 mls/hr 05/10/25 00:04 05/10/25 00:28 Ofirmev IV 05/10/25 00:18 Infused ONCE ONE Infusion Sodium Chloride 1,000 mls @ 999 mls/hr 05/10/25 00:15 05/10/25 00:13 Ns IV 05/10/25 01:15 999 mls/hr .Q1H1M LIZETTE Administration Iohexol 85 ml 05/10/25 00:52 05/10/25 00:53 Iohexol 350 Mg/Ml 100 Ml Infus..Btl IV 05/10/25 00:53 85 ml ONCE ONE Administration Ketorolac Tromethamine 15 mg 05/10/25 00:02 05/10/25 00:13 Ketorolac Tromethamine 15 Mg/Ml Vial IVPUSH 05/10/25 00:03 15 mg ONCE ONE Administration Medical Decision Making Medical Decision Making [facility] Narrative: The patient is a 35-year-old female. Her surgical history is a remote laparoscopic tubal ligation. No other abdominal surgeries. She presents with 2 weeks of periumbilical abdominal pain that has been worse over the last 4 days and particularly over the last 2 days. She does not seem to have much in the way of associated gastrointestinal symptoms such as nausea or vomiting or diarrhea. She has no urinary symptoms. She has no vaginal symptoms. Her physical exam revealed some lower abdominal tenderness but overall her exam was not very specific. Her CBC showed a white count of 10.0, hemoglobin 12.5, platelet count slightly high at 407. Differential is normal with the 53% neutrophils and 35% lymphocytes. Lipase is normal. LFTs are normal. Urinalysis shows no sign of blood in the urine. No significant sign of infection. test is negative. CRP minimally elevated at 0.65. CT scan of the abdomen and pelvis shows no acute findings. The patient was treated symptomatically with IV fluids and also IV ketorolac and acetaminophen. She felt considerably better and had fallen asleep. I do not have a good alternative explanation for the patient's pain. Her description of her symptoms is not highly suggestive of gastritis. I explained my thinking to the patient. She will be discharged. She will be given prescriptions for ibuprofen, acetaminophen, and ondansetron. She should follow up with her PCP next week or return to the ER if worse. Lab Data 05/09/25 23:25 05/09/25 23:25 Labs: Lab Results 05/09/25 Range/Units 23:25 WBC 10.0 (4.8-10.8) X10*3/uL RBC 4.41 (4.20-5.50) X10*6/uL Hgb 12.5 (12.0-16.0) g/dl Hct 38.2 (37.0-47.0) % MCV 86.6 (80.0-98.0) fL MCH 28.3 (27.0-33.0) pg MCHC 32.7 (31.0-35.0) g/dl RDW 13.7 (11.0-16.0) % Plt Count 407 H (160-400) X10*3/uL MPV 9.5 (9.4-12.3) fL Immature Gran % (Auto) 0.2 (0.0-0.4) % Neut % (Auto) 53.5 (45-73) % Lymph % (Auto) 35.7 (20-40) % [place] % (Auto) 9.3 (2-11) % Eos % (Auto) 0.9 (0-4) % Baso % (Auto) 0.4 (0-2) % Lymph # (Auto) 3.6 (1.2-4.9) X10*3/uL [place] # (Auto) 0.9 (0.1-1.2) X10*3/uL Eos # (Auto) 0.1 (0.0-0.4) X10*3/uL Baso # (Auto) 0.0 (0.0-0.2) X10*3/uL Abs Immat Gran (auto) 0.02 (0.00-0.03) X10*3/uL Absolute Neuts (auto) 5.3 (2.0-8.3) x10*3/uL Absolute Nucleated RBC 0.000 (0.0-0.012) X10*3/uL Nucleated RBC % (auto) 0.0 (0.0-0.2) /100WBC Sodium 139 (135-145) mmol/L Potassium 3.9 (3.3-5.1) mmol/L Chloride 105 (96-108) mmol/L Carbon Dioxide 28 (22-29) mmol/L Anion Gap 10 L (12-20) BUN 13 (9-16) mg/dL Creatinine 0.79 (0.5-1.4) mg/dL Estim Creat Clear Calc 92.5 Estimated GFR > 60 Random Glucose 97 (60-115) mg/dL Calcium 9.6 (8.4-10.2) mg/dL Total Bilirubin 0.2 (0.0-1.0) mg/dL AST 17 (5-31) U/L ALT 22 (0-31) U/L Alkaline Phosphatase 69 (39-117) U/L C-Reactive Protein 0.65 H (< or = 0.50) mg/dL Total Protein 7.1 (6.5-8.0) g/dL Albumin 4.3 (3.5-5.0) g/dL Lipase 26 (8-78) U/L Beta HCG, Quant < 2 mIU/mL Urine Color Yellow Urine Appearance Clear Urine pH 6.5 (5.0-9.0) Ur Specific [place] 1.025 (1.005-1.025) Urine Protein Negative (Neg-Trace) mg/dL Urine Glucose (UA) Negative (Negative) mg/dL Urine Ketones Negative (Negative) mg/dL Urine Blood Negative (Negative) Urine Nitrite Negative (Negative) Ur Leukocyte Esterase Trace H (Negative) Urine RBC 0-2 (0-2) /HPF Urine WBC 0-5 (0-5) /HPF Ur Squamous Epith Cells 3-5 (0-2) /HPF Urine Bacteria None Seen (None Seen) Hyaline Casts 0-2 (0-2) /LPF Discharge Plan Discharge Clinical Impression: Abdominal pain Patient Disposition: Home, Self-Care Additional Instructions: Your testing in the emergency room today seems very reassuring from the point of view of any acutely dangerous process. Your CAT scan does not show any significant intra-abdominal abnormalities. Your blood testing and your urine testing are also unremarkable. I have sent prescriptions for ibuprofen and acetaminophen which you may use as needed for discomfort. I have also sent a prescription for ondansetron which you may use as needed for nausea. Please try to follow up soon with your regular doctor. Call on Monday morning. Return to the emergency room if significantly worse. Prescriptions: New acetaminophen 500 mg capsule 1,000 mg PO Q8H PRN (Reason: fever or pain) Qty: 14 0RF ibuprofen 400 mg tablet 400 mg PO Q6H PRN (Reason: pain) Qty: 14 0RF ondansetron 4 mg tablet,disintegrating 4 mg PO Q6H PRN (Reason: nausea and vomiting) Qty: 10 0RF No Action albuterol sulfate 90 mcg/actuation HFA aerosol inhaler 2 puff inhalation Q4-6H PRN (Reason: shortness of breath or wheezing) Qty: 6.7 0RF hydroxyzine pamoate 50 mg capsule 50 mg PO Q8H PRN (Reason: anxiety) trazodone 100 mg tablet 100 mg PO BEDTIME fluoxetine 20 mg capsule 20 mg PO DAILY meloxicam 7.5 mg tablet 7.5 mg PO BID 30 Days Qty: 60 3RF Referrals: Konstantin Cash MD [Physician, Medical] Clinical Impression: Abdominal pain Print Language: Setswana
[2025-05-09 23:29] LABS: MANUAL DIFF FLAG NO
[2025-05-09 23:30] LABS: Hematocrit 38.2 % (37.0-47.0); Hemoglobin 12.5 g/dl (12.0-16.0); Imm Gran Abs Auto 0.02 X10*3/uL (0.00-0.03); Imm Gran Pct Auto 0.2 % (0.0-0.4); Lymphocytes Absolute Auto 3.6 X10*3/uL (1.2-4.9); Mean Corpuscular HGB Conc 32.7 g/dl (31.0-35.0); Mean Corpuscular Hemoglobin 28.3 pg (27.0-33.0); Mean Corpuscular Volume 86.6 fL (80.0-98.0); NRBC Abs Auto 0.000 X10*3/uL (0.0-0.012); NRBC Pct Auto 0.0 /100WBC (0.0-0.2); Platelet Count 407 X10*3/uL (160-400); Red Blood Count 4.41 X10*6/uL (4.20-5.50); White Blood Count 10.0 X10*3/uL (4.8-10.8)
[2025-05-09 23:31] LABS: Appearance Urine Clear; Glucose Urine UA Negative (Negative); PH 6.5 (5.0-9.0); Specific Gravity - Urine 1.025 (1.005-1.025); UMIC TRIGGER UACC YES
[2025-05-09 23:52] LABS: Alanine Aminotransferase 22 U/L (0-31); Albumin Level 4.3 g/dL (3.5-5.0); Alkaline Phosphatase 69 U/L (39-117); Anion Gap 10 (12-20); Aspartate Amino Transferase 17 U/L (5-31); Blood Urea Nitrogen 13 mg/dL (9-16); Calcium 9.6 mg/dL (8.4-10.2); Carbon Dioxide 28 mmol/L (22-29); Chloride 105 mmol/L (96-108); Creatinine Clr Calc Pharmacy 92.5; Estimated Glomerular Filt Rate > 60; Lipase 26 U/L (8-78); Potassium 3.9 mmol/L (3.3-5.1); Sodium 139 mmol/L (135-145); Total Protein 7.1 g/dL (6.5-8.0)
[2025-05-10] MEDS: iohexoL 350 MG/ML 100 ML INFUS..BTL 85 ML IV (00:53)
[2025-05-10 02:59] VITALS: BP 98/55; PULSE 72; RESP 18; TEMP 36.6; O2SAT 97
== END 2025-05-10 03:00 | disposition home or self-care (01) ==
PROVIDERS: Emergency Provider Emergency Medicine
DX: R10.9 Unspecified abdominal pain (principal)
CPT/HCPCS: 36415; 74177; 80053; 81001; 83690; 84702; 85025; 86140; 96361; 96374; 96375; 99285; J0131; J1885; Q9967

== ENCOUNTER → 2025-05-10 00:01 | Outpatient (BNV) | payer OTHER, SELFPAY | PROVIDERS: Emergency Provider Emergency Medicine; Visit Provider Radiology Diagnostic Radiology | DX: R10.9 Unspecified abdominal pain (principal) | CPT/HCPCS: 74177 ==

== ENCOUNTER 2025-06-07 23:21 | Emergency (ER) | payer OTHER, SELFPAY ==
--- NOTE | ~2025-06-07 | XR_ITS ---
CLINICAL HISTORY: Pain 3 views left shoulder Comparison: None provided Findings: There is no acute fracture or dislocation. Glenohumeral and acromioclavicular joint spaces appear normal. There is a small ossific or calcific density adjacent to the greater tuberosity of the humerus. Impression: 1. No acute findings. 2. Small ossific or calcific density adjacent to the greater tuberosity of the humerus possibly heterotopic ossification or calcific tendinitis. This document has been electronically signed by: Josafat Dietz MD on 06/08/2025 02:28:12
[2025-06-07 23:31] VITALS: BP 93/55; PULSE 86; RESP 16; TEMP 36.5; O2SAT 96; BMI 37.6
--- OUTSIDE RECORDS SUMMARY | 2025-06-08 00:12 | XMS_ITS ---
Author Name [facility] Organization Unknown Encounters Encounter Type Encounter Reason Primary Diagnosis Location Date [facility]) 05/10/2025 Care Team Organization Name Specialty Phone Email Start Date End Da [facility] 05/14[facility]10[facility]2025
--- OUTSIDE RECORDS SUMMARY | 2025-06-08 00:12 | XMS_ITS | Clinical Summary ---
Author Organization [employer] Address [address] [place] [address] Care Team Providers Care Wrapper Sizer Name Role Phone Konstantin Cash MD Primary Care Prov ider Allergies No known active allergies Medications * This document contains information received from the source organization and may not represent a complete record from that organization. meloxicam (Mobic) 15 MG tabletIndications: Lateral epicondylitis of left elbow Take 1 tablet (15 mg) by mouth Once per day. 30 tablet 11 5 11/12/19 26 Active traZODone (Desyrel) 100 MG tablet Take 1 tablet (100 mg) by mouth at bedtime. 90 tablet 1 5 Active hydrOXYzine pamoate (Vistaril) 50 MG capsule Take 1 capsule (50 mg) by mouth every 6 (six) hours if needed for anxiety. 360 capsule 5 07/27/20 25 Active FLUoxetine (PROzac) 10 MG tablet Take 1 tablet (10 mg) by mouth Once per day. 90 tablet 5 07/27/20 25 Active Active Problems Problem Noted Date Diagnosed Date Lateral epicondylitis of left elbow 12/25/2024 Assessment & Plan (12/25/2024 10:17 AM EDT): Patient has followed reccomendations without improvement in symptoms, will refer to ortho for evalaution for cortisone shot Mixed stress and urge urinary incontinence 12/11 Assessment & Plan (12/11/2024 2:26 PM EDT): Recommended kegel exercises, will refer to radio interference expert for evaluation Dental calculus 08/01/2024 Bleeding gums [...] recurrent major depressive disorder, without psychotic features ([facility]) 03/27/2024 Assessment & Plan (09/13/2024 1:27 PM [...] month Mild depression 12/09/2023 Assessment & Plan (04/28/2025 6:08 PM EDT): Following a therapist, no suicidal/homicidal ideas, will restart fluoxetine, continue hydroxyzine and trazodone, follow up in 3 months Assessment & Plan (04/09/2024 2:25 PM EDT): Symptoms improving with escitalopram, no suicidal/homicidal ideas, followed by , follow up in 3 months Assessment & Plan (12/09/2023 10:49 AM EDT): As above Encounters Date Type Department Care Team Description 04/28/2025 3:30 PM EDT Telemedicine [facility] [address] [place] [address] Konstantin Cash MD Mild depression (Primary Dx); Anxiety 04/28/2025 Travel 04/21/2025 Refill [facility] [address] [place] [phone] Konstantin Cash MD 03/13/2025 Telephone [facility] [address] [place] [address] Konstantin Cash MD R/S APPT from Last 3 Months Immunizations Immunization Administration [...] housing situation today? I have melany rodrigez 04/28/[address] you li ve. Do you have problems with any of the following? None of the above 04/28/2025 Food Insecurity Answer Date Recorded Within the past 12 months, y ou worried that your food would run out before you got money to buy more: Never True 04/28/2025 Within the past 12 months,th e food you bought just didn't last and you didn't have enough money to get more: Never True Transportation Answer Date Recorded In the past 12 months, has l ack of transportation kept you from medical appts, meetings, work or from getting things needed for daily living? No 04/28/2025 Utilities Answer Date Recorded In the past 12 months, has t he electric, gas, oil or water company threatened to shut off services in your home? No 04/28/2025 Depression Answer Date Recorded Patient Health Questionnaire-2 Score 0 12/11/2024 Internet Access Answer Date Recorded Internet Access Q1 Yes 04/28/2025 Internet Access Q2 Not on file 04/28/2025 Comments No Sex and Gender Information Value [...] 11/11/2024 3:08 PM EDT Plan of Treatment Health Maintenance Due Date Last Done Comments Family Planning (PISQ) 2006 HPV Vaccines (1 - 3-dose series) 2006 Hepatitis B Vaccines (1 of 3 - 19+ 3-dose series) 2010 Pap Smear 02/19/2012 Cervical Cancer Screening 2021 HPV/Cotest 2021 Dental Prophylaxis 01/30/2025 08/01/2024 Dental Oral Exam 02/19/2025 08/21/2024, 05/05/2023 COVID-19 Vaccine (2024-2 6 season) 2025 08/30/2021, 01/06/2021, 12/16/2020 Influenza Vaccine (#1) 2025 , 04/09/2024 Dental X-Ray: Bitewings 08/02/2025 08/01/19 25, 05/05/2023 Alcohol/Substance Use Screening 09/12/2025 09/12/2024 Tobacco Screening 11/11/2025 11/11/2024 Depression Screening 12/11/2025 12/11/2024, 12/11/2024 Disability Screening 04/28/2026 04/28/2025 SDOH Screening 04/28/2026 04/28/2025 Dental X-Ray: Full Mouth 05/06/2026 05/05/2023 Lipid [...] 2:49 PM EDT) Triglycerides 147 <150 mg/dL [facility] Comment:Desirable Triglyceri de: less than 150 mg/dLBorderline High Triglyceride 150-199 mg/dLHigh Triglyceride: 200-499 mg/dLVery High Triglyceride: greater than or equal to 5OO mg/dL Cholesterol 183 <200 mg/dL [facility] Comment:Desirable Cholestero l: less than 200 mg/dLBorderline High Cholesterol: 200-239 mg/dLHigh Cholesterol: greater than 239 mg/dL LDL Cholesterol Calculated 110(H) <100 mg/dL [facility] Comment:Desirable LDL: less than 100 mg/dLNear Optimal/Above Optimal LDL: 110- 129 mg/dLBorderline High LDL: 130-159 mg/dLHigh LDL: 160-189 mg/dLVery High LDL: greater than or equal to 190 mg/dL HDL Cholesterol 44 >40 mg/dL [facility] Comment:Desirable HDL: great er than 40 mg/dL Note: This HDL assay may give artificially low results in patients with liver disease. Blood Venous blood specimen / Unknown 04/09/2024 2:49 PM EDT 04/09/2024 5:27 PM EDT us Konstantin Bryant MD LAB BLOOD ORDERABL ES Final Result Performing Organization Address [facility] Co de Phone Number [facility] [address] [place] [phone] * Hepatitis C Antibody with Reflex to HCV, RNA, Quantitative, Real-Time PCR (04/09/2024 2:44 PM EDT) Hepatitis C Antibody Nonreactive Nonreactive [facility] Comment:Antibodies to HCV no t detected; does not exclude early acuteHCV infection. Blood Venous blood specimen / Unknown 04/09/2024 2:44 PM EDT 04/09/2024 5:27 PM EDT Konstantin Bryant MD LAB BLOOD ORDERABL ES Final Result Performing Organization Address [facility] Co de Phone Number [facility] [address] [place] [phone] * HIV-1/2 Antigen and Antibodies, Fourth Generation, with Reflexes (04/09/2024 2:44 PM EDT) HIV AB/AG Nonreactive Nonreactive [facility] Comment:HIV-1 p24 Ag and/or HIV-1/HIV-2 Ab not detected.A test result that is nonreactive does not exclude thepossibility of exposure to or infection with HIV-1 and/orHIV-2. Nonreactive results in this assay for individualswith prior exposure to HIV-1 and/or HIV-2 may be due toantigen and antibody levels that are below the limit ofdetection of this assay.The [employer] HIV Ag/Ab Combo assay result andsupplemental assay results should be interpreted inconjunction with the patient's clinical presentation,history and other laboratory results. If the results areinconsistent with clinical evidence, additional testing issuggested to confirm the result. Blood Venous blood specimen / Unknown 04/09/2024 2:44 PM EDT 04/09/2024 5:27 PM EDT us Konstantin Bryant MD LAB BLOOD ORDERABL ES Final Result [facility] [address] [place] [phone] from Last 3 Months or Most Recently Relevant to Health Maintenance Insurance [employer] PPO [facility] MEDICA[facility] STAND ADULT Care Teams Wrapper Sizer Relationship Specialty Start Date End Date AlbertKonstantin Pineda MD [address] [place] [phone] PCP - General Internal Medicine 12/09/23
--- NOTE | 2025-06-08 00:47 | ED_ITS ---
HPI - Extremity Problem General Chief complaint: Extremity Injury, Upper Stated complaint: left arm immobile Time Seen by Provider: 06/08/25 00:47 Source: patient Mode of arrival: ambulatory Limitations: no limitations History of Present Illness ED Provider: Ramo MORILLO HPI Narrative: The patient is a 35-year-old female presenting to the ED for evaluation of painful range of motion of the left arm. 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 The patient reports she was doing extensive lifting yesterday at work but denies any fall to the ground, trauma, or sudden onset of pain while lifting. The patient reports she went home, and around 03:00 Monday morning was woken by severe pain with any attempted range of motion of the left arm. The patient reports pain is in the deltoid and anterior left shoulder, denies distal paresthesias or impaired copy messenger strength. The p atient denies associated fever/chills, nausea, vomiting or other systemic complaint. Patient denies any previous injury to the affected extremity. Related Data Home Medications ?Medication ?Instructions ?Recorded ?Confirmed fluoxetine 20 mg capsule 20 mg PO DAILY 02/24/2501/29 hydroxyzine pamoate 50 mg capsule 50 mg PO Q8H PRN anx iety 02/24/25 02/24/25 trazodone 100 mg tablet 100 mg PO BEDTIME 02/24/25 0 02/24/25 Previous Rx's ?Medication ?Instructions ?Recorded albuterol sulfate 90 mcg/actuation 2 puff inhalation Q 4-6H PRN 05/24/22 aerosol inhaler shortness of breath or wheez ing #6.7 grams meloxicam 7.5 mg tablet 7.5 mg PO BID 30 days #60 ta bs 02/24/25 acetaminophen 500 mg capsule 1,000 mg (2 x 500 mg) PO Q8H PRN 05/10/25 fever or pain #14 caps ibuprofen 400 mg tablet 400 mg PO Q6H PRN pain #14 t abs 05/10/25 ondansetron 4 mg disintegrating 4 mg PO Q6H PRN nausea and 05/10/25 tablet vomiting #10 tabs acetaminophen 500 mg capsule 1,000 mg (2 x 500 mg) PO .q8 PRN 11/09/25 fever or pain #30 caps cyclobenzaprine 10 mg tablet 10 mg PO TID PRN muscle s pasm #14 06/08/25 tabs ibuprofen 600 mg tablet 600 mg PO Q8H PRN fever or p ain 06/08/25 #30 tabs Allergies Allergy/AdvReac Type Severity Reaction Status Date / Time No Known Allergies Allergy Verified 06/07/25 23:36 Review of Systems Review of Systems: Yes all other systems are reviewed and are negative PMFSH Past Medical History Medical History No active medical problems Social History Social History Alcohol intake: never Advance Directives: No Advance Directives Information Provided: Yes Do you have a plan to hurt others: No Plan Physical Exam Vital Signs: Vital Signs: Last Vital Signs Temp 98.1 F 06/08/25 02:44 Pulse 70 06/08/25 02:44 Resp 16 06/08/25 02:44 BP 101/54 L 06/08/25 02:44 Pulse Ox 98 06/08/25 02:44 O2 Del Method Room Air 06/08/25 02:44 BMI result Body Mass Index 37.6 CONSTITUTIONAL: The patient appears non-toxic, well nourished and in no acute distress. Vital signs as documented. HEAD: Atraumatic, normocephalic. EYES: EOMs grossly intact, pupils equal, conjunctiva clear, no exudate. ENT: Nares patent, no discharge. Airway patent, no audible stridor, visible mucosa is pink and moist without noted lesions. NECK: trachea is midline, no obvious masses or gross abnormalities. CHEST: Symmetric movement, normal appearance. LUNGS: Non-labored work of breathing. CARDIAC: No evidence of hypoperfusion. ABDOMEN: Nondistended, no obvious injury. : Deferred. EXTREMITIES: Left upper extremity is being splinted secondary to pain, distal CSM is intact, 2+ radial pulse, full dexterity of the fingers, copy messenger strength 5/5. Significant pain reported with pushing and pulling against resistance, less severe pain with passive range of motion. Moves all other extremities spontaneously without reported pain. No obvious injury or deformity noted. NEURO: Alert and oriented x3, CN II-XII appear grossly intact. Cerebellar Functioning grossly intact. Speech clear and appropriate. SKIN: Warm, dry, color appropriate. No rashes or lesions noted. Medications Administered Discontinued Medications Generic Name Dose Route Start Last Admin Trade Name Dunia PRN Reason Stop Dose Admin Acetaminophen 975 mg 06/08/25 02:10 06/08/25 02:25 Acetaminophen 325 Mg Tablet PO 06/08/25 02:11 975 mg ONCE ONE Administration Ibuprofen 600 mg 06/08/25 02:10 06/08/25 02:25 Ibuprofen 600 Mg Tablet PO 06/08/25 02:11 600 mg ONCE ONE Administration Lidocaine 1 patch 06/08/25 02:10 06/08/25 02:24 Lidocaine 4 % Patch Adh..Patch TRANSDERMA 06/08/25 02:11 1 patch ONCE ONE Administration Protocol Medical Decision Making Medical Decision Making MDM Narrative: 2:11 AM 06/08/2025 (Tyler MORILLO): The patient is a 35-year-old female presenting to the ED for evaluation of painful range of motion of the left arm. 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 The patient reports she was doing extensive lifting yesterday at work but denies any fall to the ground, trauma, or sudden onset of pain while lifting. The patient reports she went home, and around 03:00 Monday morning was woken by severe pain with any attempted range of motion of the left arm. The patient reports pain is in the deltoid and anterior left shoulder, denies distal paresthesias or impaired copy messenger strength. The patient denies associated fever/chills, nausea, vomiting or other systemic complaint. Patient denies any previous injury to the affected extremity. In the ED the patient is noted to be splinting of the left arm, distal CSM is intact, 2+ radial pulse, full dexterity of the fingers, copy messenger strength 5/5. The patient has significant pain with pushing and pulling against resistance with the left upper extremity. Patient reports less severe pain with passive range of motion. The patient's x-ray was reviewed and shows no evidence of dislocation, fracture, or separation. The patient's presentation appears consistent with musculoskeletal strain, patient will be treated with anti- inflammatories, topical analgesics, and muscle relaxer. Admission/Observation Consideration of admission/observation: Escalation of care including admission/observation considered Independent Interpretation I performed an independent interpretation of an: Plain X-Ray (This provider's review of the patient's shoulder x-ray demonstrates no fracture, dislocation, or separation.) Radiology Impression Discussion of test interpretation with radiology: I have reviewed the radiologist's reading. Radiologist Impression: 3 views left shoulder Comparison: None provided Findings: There is no acute fracture or dislocation. Glenohumeral and acromioclavicular joint spaces appear normal. There is a small ossific or calcific density adjacent to the greater tuberosity of the humerus. Impression: 1. No acute findings. 2. Small ossific or calcific density adjacent to the greater tuberosity of the humerus possibly heterotopic ossification or calcific tendinitis. This document has been electronically signed by: Josafat Dietz MD on 06/08/2025 02:28:12 Prescription Management I considered prescription management with: Pain Medication Discharge Plan Discharge Clinical Impression: Left shoulder strain Qualifiers: Encounter type: initial encounter Qualified Code(s): S46.912A - Strain of unspecified muscle, fascia and tendon at shoulder and upper arm level, left arm, initial encounter Patient Disposition: Home, Self-Care Instructions: Muscle Strain (ED) Additional Instructions: Thank you for choosing [facility]'s Emergency Department for your care today. Thankfully your x-ray today shows no evidence of an acute fracture, dislocation, or separation. At this time there is no indication for admission to the [facility] or continued ED observation, and it is safe to discharge you home. Your exam is consistent with a strain of the muscles of your left shoulder. You should take alternating (staggered) doses of ibuprofen 600mg and Tylenol 1000mg every 4 hours as needed for any additional pain. Please rest the injured area, and apply ice for 20 minutes every hour. As a part of your care plan, you have also been prescribed a muscle relaxer. Please take this medication only for severe pain or spasm that is not relieved by ibuprofen and/or Tylenol. Muscle relaxer medications can carry high risk of unintentional addiction and abuse. Take this medication only as directed and only if absolutely necessary. This medicine can make you drowsy, you are not allowed to drive, operate heavy machinery, or be the sole care provider for children while taking this medication. We have treated you with a lidocaine patch, if you find this provides you significant relief additional patches can be purchased at any local pharmacy without a prescription. Please follow up with your primary care physician for re-evaluation, orthopedic referral as deemed appropriate, additional management of your symptoms, and continued preventative care. If you do not have a primary care physician, please call the [facility] at [phone] to establish a new primary care physician. While waiting to establish your new primary care physician, you can call our [facility] at [phone] for non-emergency needs. Please return to the emergency department if you develop a severe or sudden change in your symptoms, a fever over 100.4 that does not improve with Tylenol or Ibuprofen, recurrent vomiting, or any other new or worsening symptoms or concerns. Prescriptions: New acetaminophen 500 mg capsule 1,000 mg PO .q8 PRN (Reason: fever or pain) Qty: 30 0RF ibuprofen 600 mg tablet 600 mg PO Q8H PRN (Reason: fever or pain) Qty: 30 0RF cyclobenzaprine 10 mg tablet 10 mg PO TID PRN (Reason: muscle spasm) Qty: 14 0RF No Action albuterol sulfate 90 mcg/actuation HFA aerosol inhaler 2 puff inhalation Q4-6H PRN (Reason: shortness of breath or wheezing) Qty: 6.7 0RF acetaminophen 500 mg capsule 1,000 mg PO Q8H PRN (Reason: fever or pain) Qty: 14 0RF ibuprofen 400 mg tablet 400 mg PO Q6H PRN (Reason: pain) Qty: 14 0RF ondansetron 4 mg tablet,disintegrating 4 mg PO Q6H PRN (Reason: nausea and vomiting) Qty: 10 0RF hydroxyzine pamoate 50 mg capsule 50 mg PO Q8H PRN (Reason: anxiety) trazodone 100 mg tablet 100 mg PO BEDTIME fluoxetine 20 mg capsule 20 mg PO DAILY meloxicam 7.5 mg tablet 7.5 mg PO BID 30 Days Qty: 60 3RF Referrals: Cristofer Grimm III, MD [Primary Care Provider, Medical] Clinical Impression: Left shoulder strain Stand Alone Forms: Work/School Release Interventions: ED Discharge Assessment Last Done: 06/08/25 02:44 Discharge Date/Time: 06/08/25 02:44 Print Language: Kuwaiti
[2025-06-08 02:22] VITALS: BP 101/54; PULSE 70; RESP 16; TEMP 36.7; O2SAT 98
[2025-06-08] MEDS: Lidocaine 4 % Patch ADH..PATCH 1 PATCH TRANSDERMA (02:24)
[2025-06-08 02:44] VITALS: BP 101/54; PULSE 70; RESP 16; TEMP 36.7; O2SAT 98
== END 2025-06-08 02:44 | disposition home or self-care (01) ==
PROVIDERS: Emergency Provider Emergency Medicine; PCP Internal Medicine
DX: S46.912A Strain of unspecified muscle, fascia and tendon at shoulder and upper arm level, left arm, initial encounter (principal); M25.512 Pain in left shoulder; X50.0XXA Overexertion from strenuous movement or load, initial encounter; Y93.9 Activity, unspecified; Y92.9 Unspecified place or not applicable; Y99.8 Other external cause status
CPT/HCPCS: 73030; 99283; 99284

== ENCOUNTER → 2025-06-08 00:06 | Outpatient (BNV) | payer OTHER, SELFPAY | PROVIDERS: Emergency Provider Emergency Medicine; PCP Internal Medicine; Visit Provider Radiology Diagnostic Radiology | DX: M25.512 Pain in left shoulder (principal) | CPT/HCPCS: 73030 ==